=== PATIENT | male | born 1990 | race Caucasian/White ===

== ENCOUNTER → 2022-08-16 | Outpatient (CLI) | payer OTHER ==
--- NOTE | 2022-08-16 14:23 | P.SLEEP ---
History of Present Illness DATE: 08/16/2022 CONSULTATION/NEW PATIENT EVALUATION HISTORY OF PRESENT ILLNESS/SLEEP-WAKE EVALUATION: 31-year-old gentleman had been evaluated in the sleep center for possible obstructive sleep apnea hypopnea syndrome. Patient was diagnosed with obstructive sleep apnea hypopnea syndrome in 2012 in another institution, she was started on treatment with CPAP but he use it for very short period of time. SLEEP SCHEDULE: Usually sleep schedule from 11 PM-12 AM to 6 AM on working days and to 7 AM on weekend. FALLING ASLEEP: Sometimes patient has problems with falling asleep, has TV set and bedroom. DURING SLEEP: Patient has loud snoring, witnessed episodes of stop breathing during the sleep, awakenings from sleep up to 3 times with one episode of nocturia. Positive history of restless leg symptoms, sweating, heartburn. No history of hypnogogical hallucinations, sleep paralysis, or cataplexy. DURING THE DAY/WAKE STATE: In the morning patient wake up tired, falling asleep during the day, has problems with memory, concentration, irritability. [place] sleepiness scale is significantly increased to 16. Patient may take 1 nap at around noontime. PAST MEDICAL HISTORY: Diabetes mellitus. PAST SURGICAL HISTORY: Eye surgery in childhood. MEDICATIONS: Metformin 500 mg twice a day. SOCIAL HISTORY: Negative for smoking, alcohol consumption none at the present time. FAMILY HISTORY: Hypertension, stroke, lung problems, diabetes, restless leg syndrome. REVIEW OF SYSTEMS: Loud snoring, awakenings from sleep, sleepiness during the day. No fevers. No double vision. No recent chest pain. No shortness of breath. No abdominal pain. No bleeding episodes. No blood in urine. No seizure episodes. PHYSICAL EXAMINATION: GENERAL: A pleasant patient without any distress. VITAL SIGNS: BP 133/84, HR 52, RR 16, weight 202.4 pounds, height 5 foot 6 inches, body mass index 32.6. HEENT: PERRLA, EOMI. Evaluation of oropharynx showed tongue protrudes midline, low position of soft palate Mallampati 4. NECK: Supple. No JVD. Thyroid is not palpable. 16.25 inches in circumference. LUNGS: Clear to percussion and to auscultation. Good air exchange. No wheezing or rhonchi. HEART: S1, S2 regular. No murmurs, gallops or rubs. ABDOMEN: Soft and nontender. Bowel sounds are present. No organomegaly appreciated. EXTREMITIES: No clubbing or cyanosis. ADVERTISING ACCOUNT EXECUTIVE: Awake, alert, and oriented x3. Cranial nerves 2 to 7 intact. There is no fasciculation or atrophy noted. No focal deficits observed. ASSESSMENT: 1. Loud snoring, witnessed sleep apneas, multiple awakenings from sleep, extremely low position of soft palate, sleepiness [place] Sleepiness Scale increased to 16, history of obstructive sleep apnea in the past. Obstructive sleep apnea hypopnea syndrome. 2. Mild obesity body mass index 32.6. 3. Diabetes mellitus. 4. Status post eye surgery in childhood. PLAN: 1. Polysomnography for evaluation of patient's breathing during sleep. 2. CPAP/BiPAP titration if sleep study confirms obstructive sleep apnea- hypopnea syndrome. 3. Preferable position during sleep on the side. 4. No driving if patient feels any sleepiness. Patient is aware of civil and criminal liability for unsafe driving. 5. Sleep hygiene with regular sleep time for at least 7.5-8 hours. 6. Watching and losing weight. Thank you very much for referring this patient for consultation. Sincerely, Nehemiah Coe MD, PhD, FAASM. Diplomat of [employer], Sleep Medicine Board by [employer] [facility] Past Medical History Past Medical History: No Reported History History of Any Multi-Drug Resistant Organisms: None Reported Past Surgical History: No Surgical Hx Reported Past Psychological History: No Psychological Hx Reported Past Alcohol Use History: None Reported Past Drug Use History: None Reported Medications and Allergies Home Medications Medication Instructions Recorded Confirmed Type No Known Home Medications 02/16/16 02/16/16 History Allergies Allergy/AdvReac Type Severity Reaction Status Date / Time No Known Allergies Allergy Verified 02/19/16 14:25 Sleep Note - Sleep Note Sleep Note: Temperature: Pulse Rate: Respiratory Rate: Blood Pressure: SpO2: Height: Weight: BMI: Neck Circumference:
== END ==
LOC: SLEEP 13:16
PROVIDERS: ATTEND Internal Medicine
DX: G47.33 Obstructive sleep apnea (adult) (pediatric) (principal); E66.9 Obesity, unspecified; Z68.32 Body mass index [BMI] 32.0-32.9, adult; E11.9 Type 2 diabetes mellitus without complications; Z48.810 Encounter for surgical aftercare following surgery on the sense organs; Z79.84 Long term (current) use of oral hypoglycemic drugs; Z99.89 Dependence on other enabling machines and devices
CPT/HCPCS: 99202